=== PATIENT | female | born 1980 | race Caucasian/White ===

== ENCOUNTER 2025-03-09 18:35 | Emergency (ER) | payer OTHER, SELFPAY ==
[2025-03-09 18:49] VITALS: BP 191/99; PULSE 118; TEMP 36.7; O2SAT 99; BMI 35.2
--- NOTE | 2025-03-09 18:53 | XR_ITS ---
[facility] [place] [address] Patient Name: ELLI ALAMO MRN: [id number] date: 1980 Sex: F Assigned Patient Location: ED.MAIN Current Patient Location: ED.MAIN Accession/Order Number: [id number] Exam Date: 03/09/2025 19:51 Report Date: 03/09/2025 19:53 At the request of: INNA DANIELS Procedure: XR tibia fibula RT 2V 2 views right tibia and fibula plain film HISTORY: Right lower leg laceration COMPARISON: None ACUTE FINDINGS: None DEGENERATIVE CHANGE: Unremarkable SOFT TISSUE FINDINGS: Anterior laceration defect. No radiodense foreign body. No subcutaneous air. Diffuse soft tissue swelling greatest anteriorly JOINT EFFUSION: None POSTOP CHANGES: None BONE MINERALIZATION: Adequate XR/XR tibia fibula RT 2V IMPRESSION: Anterior soft tissue laceration with adjacent edema. No acute bony findings. Impression dictated by: Rusty Ott M.D. 03/09/2025 7:53 PM Dictation Location: [place] [address] Electronically authenticated by: [id number] Y Date: 03/09/2025 19:53
[2025-03-09] MEDS: LIDOCAINE HCL 1% 100 MG/10 ML MDV INJ ×2 (19:48)
[2025-03-09] MEDS: HYDROCODONE/ACET 5-325 MG TABLET 1 TAB PO (19:49)
[2025-03-09] MEDS: ADACEL DIPH,PERTUSS(ACELL),TET VAC/PF 0.5 ML ADULT SYRINGE IM (19:49)
--- NOTE | 2025-03-09 19:49 | ED.GENADUL1 ---
HPI HPI - General Adult General Chief complaint: Wound/Laceration Stated complaint: FALL Time Seen by Provider: 03/09/25 18:48 Source: patient Mode of arrival: walk-in History of Present Illness HPI narrative: 45-year-old female presents here with a chief complaint of a crescent-shaped to the tib-fib of the right leg. She was helping unload stone and accidentally caught her leg on the bucket. She has a crescent-shaped 6 cm x 3 cm wound with subcutaneous fat exposed. She is not up-to-date on her tetanus immunization. She comes in with the area wrapped. Small amount of bleeding is noted prior to arrival. She is otherwise healthy no acute distress. Related Data Home Medications ?Medication ?Instructions ?Recorded ?Confirmed atorvastatin 20 mg tablet mg 03/09/25 losartan 100 tab 03/09/25 mg-hydrochlorothiazide 25 mg tablet Previous Rx's ?Medication ?Instructions ?Recorded cephalexin 500 mg capsule 500 mg PO BID 10 days #20 caps 03/09/25 ibuprofen 800 mg tablet 800 mg PO Q8H PRN pain #20 tabs 03/09/25 Allergies Allergy/AdvReac Type Severity Reaction Status Date / Time No Known Drug Allergies Allergy Verified 03/09/25 19:28 Opioid HPI Opioid Management Most Recent Opioid Data: Last Pain Scale 5 03/09/25, 19:49 Last MAR Pain Assessment 03/09/25, 19:49 Review of Systems ROS Status of ROS 10 or more systems reviewed and unremarkable except as noted in history and below PFSH PFSH Social History Little interest or pleasure in doing things: not at all Feeling down, depressed, or hopeless: not at all Exam Narrative Exam Narrative: All Systems are negative except as noted/marked.All systems reviewed and otherwise negative Nurses note and vital signs reviewed and patient is not hypoxic. General: The patient appears well and in no apparent distress. Patient is resting comfortably on cart. Skin: Warm, dry, no pallor noted. There is no rash noted. Head: Normocephalic, atraumatic Eye: Normal conjunctiva, no drainage, EOMI. PERRL Ears, Nose, Mouth, and Throat: oral mucosa is moist. Nares patent. Mouth without vesicles. Ear canals patent. Tm's without Erythema Musculoskeletal: 6 x 3cm laceration to the right anterior vela, subcutaneous fat exposed, no foreign body noted, extremities neurovascularly intact distally, no injury to any other extremities, Neurological: A&O x4, normal speech Psychiatric: Cooperative Constitutional Vital Signs, click to edit/add: Last Vital Signs Temp 98.1 F 03/09/25 18:49 Pulse 118 H 03/09/25 18:49 Resp 16 03/09/25 18:49 BP 191/99 H 03/09/25 18:49 Pulse Ox 99 03/09/25 18:49 O2 Del Method Room Air 03/09/25 18:49 Course Vital Signs Vital signs: Vital Signs Temperature 98.1 F 03/09/25 18:49 Pulse Rate 118 H 03/09/25 18:49 Respiratory Rate 16 03/09/25 18:49 Blood Pressure 191/99 H 03/09/25 18:49 Pulse Oximetry 99 03/09/25 18:49 Oxygen Delivery Method Room Air 03/09/25 18:49 Temperature 98.1 F 03/09/25 18:49 Pulse Rate 118 H 03/09/25 18:49 Respiratory Rate 16 03/09/25 18:49 Blood Pressure 191/99 H 03/09/25 18:49 Pulse Oximetry 99 03/09/25 18:49 Oxygen Delivery Method Room Air 03/09/25 18:49 Medical Decision Making Differential Diagnosis Differential Diagnosis: laceration, fall Medical Records Medical records reviewed: Yes I reviewed the patient's medical records Medical records narrative: 45-year-old female presents here with a chief complaint of a crescent-shaped to the tib-fib of the right leg. She was helping unload stone and accidentally caught her leg on the bucket. She has a crescent-shaped 6 cm x 3 cm wound with subcutaneous fat exposed. She is not up-to-date on her tetanus immunization. She comes in with the area wrapped. Small amount of bleeding is noted prior to arrival. She is otherwise healthy no acute distress. Patient here with a crescent-shaped laceration noted to the right anterior vela. Area was cleaned and prepped in sterile fashion and anesthetized with 1% lidocaine solution locally x 15 cc. Area was then closed in 2 layer fashion with 3-0 Vicryl times 4 sutures followed by exterior closure of 12 simple sutures 3-0 Ethilon suture. Extremity reapproximated well. Bacitracin dressing applied by nursing staff. Patient giving wound care instructions and also reasons to follow-up with primary care physician to have sutures removed in 10 to 14 days. Patient agrees with plan of care. Lab Data Lab results reviewed: Yes I reviewed the patient's lab results Imaging Data tib: Radiologist's impression: ITS Impressions Tibia/Fibula X-Ray 03/09/25 18:53 IMPRESSION: Anterior soft tissue laceration with adjacent edema. No acute bony findings. Impression dictated by: Rusty Ott M.D. 03/09/2025 7:53 PM Dictation Location: [facility] Electronically authenticated by: [id number] Y Date: 03/09/2025 19:53 Discharge Plan Discharge Chief Complaint: Wound/Laceration Clinical Impression: Laceration Patient Disposition: Home, Self-Care Time of Disposition Decision: 19:45 Condition: Good Mode of Transportation: Private Vehicle Prescriptions / Home Meds: New ibuprofen 800 mg tablet 800 mg PO Q8H PRN (Reason: pain) Qty: 20 0RF cephalexin 500 mg capsule 500 mg PO BID 10 Days Qty: 20 0RF No Action atorvastatin 20 mg tablet losartan-hydrochlorothiazide 100-25 mg tablet Print Language: Mohawk Instructions: Laceration (ED) Additional Instructions: Leg elevated as much as possible, have sutures removed in 10 to 14 days. Complete antibiotics as prescribed. Referrals: LILO KUHN [Primary Care Provider, Family Practice] - 1 week Discharge Date/Time: 03/09/25 20:00
[2025-03-09] MEDS: CEPHALEXIN 500 MG CAPSULE PO (19:51)
== END 2025-03-09 20:00 | disposition home or self-care (01) ==
PROVIDERS: Emergency Provider Emergency Medicine; PCP Family Medicine
DX: S81.811A Laceration without foreign body, right lower leg, initial encounter (principal); W26.8XXA Contact with other sharp object(s), not elsewhere classified, initial encounter; Z23 Encounter for immunization
CPT/HCPCS: 12002; 73590; 90471; 90715; 99284